=== PATIENT | male | born 2000 | race Hispanic/Latino ===

== ENCOUNTER 2018-07-31 17:15 | Emergency (ER) | payer BC ==
[~2018-07-31 17:15] MED LIST: Iopamidol 370 76% 100 ML VIAL ONE
[2018-07-31 18:33] LABS: Bilirubin Small (Negative); Blood, Urine Negative (Negative); Clarity Clear (Clear); Glucose, Urine (Dipstick) Negative (Negative); Leukocyte Negative (Negative); Nitrite Negative (Negative); Protein, Urine (Dipstick) 100 mg/dL (Neg-Trace); Specific Gravity, Urine 1.025 (1.005-1.030)
[2018-07-31 18:45] LABS: Bacteria/HPF Rare-Few HPF (None Seen); RBC/HPF None Seen HPF (0-3); Squamous Epithelial 0-3 HPF (0-3); WBC/HPF 0-3 HPF (0-3)
[2018-07-31 18:46] LABS: Crystals/HPF 1+ AMORPH URATES HPF (Negative); Other Casts/LPF 0-3 FINELY GRAN LPF (0-3 Hyaline)
[2018-07-31 18:49] LABS: ALT (SGPT) 13 U/L (8-55); AST (SGOT) 12 U/L (5-34); Albumin 4.7 g/dL (3.5-5.0); Alkaline Phosphatase 105 U/L (Less than 750); Anion Gap 14 mmol/L (10-20); BUN (Urea Nitrogen) 10 mg/dL (8.9-20.6); Bilirubin, Total 0.9 mg/dL (0.2-1.2); Calc. Creatinine Clearance 0 mL/min (70-130); Calcium 9.4 mg/dL (7.8-10.44); Carbon Dioxide 25 mmol/L (22-29); Chloride 100 mmol/L (98-107); Estimated GFR-MDRD Greater than 90; Globulin 3.6 g/dL (2.4-3.5); Glucose 124 mg/dL (70-105); Lipase 6 U/L (8-78); Potassium 3.7 mmol/L (3.5-5.1); Protein, Total 8.3 g/dL (6.0-8.3); Sodium 135 mmol/L (136-145)
[2018-07-31 18:51] LABS: Band 1 % (5-11); Hemoglobin 14.7 g/dL (14.0-18.0); Lymphocytes 5 % (28-48); MDiff Complete? YES; Mean Corpuscular HGB CONC 32.6 g/dL (32.0-36.0); Mean Corpuscular Hemoglobin 28.9 pg (25.0-35.0); Mean Corpuscular Volume 88.9 fL (78.0-98.0); Mean Platelet Volume 7.8 fL (7.4-10.4); Monocytes 2 % (0-4); Neutrophil 90 % (31-61); Platelet Count 355 thou/uL (130-400); Platelet Morphology Comment Appears Adequate; RBC Distribution Width 12.2 % (11.5-14.5); RBC Morphology Normal; Reactive Lymphocytes 2 % (0-10); Red Blood Cell (RBC) Count 5.06 mill/uL (4.00-5.20); White Blood Cell (WBC) Count 21.6 thou/uL (4.8-10.8)
[2018-07-31] MEDS ORDERED: Sodium Chloride 0.9% 100 ML ONE (19:07)
[2018-07-31] MEDS ORDERED: CEFAZOLIN 1 GM VIAL ONE (19:07)
[2018-07-31] MEDS ORDERED: Sodium Chloride 0.9% 1,000 ML ONE (19:07)
--- NOTE | 2018-07-31 20:08 | CT ---
CT of abdomen and pelvis: 07/31/2018 COMPARISON: None HISTORY: Pain, vomiting TECHNIQUE: Axial CT imaging is obtained at 5 mm intervals from lung bases through pubic symphysis wit h IV contrast. Coronal reformatted imaging obtained. FINDINGS: Detailed assessment of the abdomen pelvis is significantly limited secondary to persistent motion artifact. There is mild gaseous distention of the distal esophagus. Limited assessment of the lung bases is grossly unremarkable. No free intraperitoneal air. Limited assessment of the liver, gallbladder, spleen, pancreas, adrenal glands, and kidneys appears unremarkable. Small volume abnormal free fluid is seen within the pelvis. Limited assessment of the bowel secondary to motion and lack of oral contrast media demonstrates no e vidence for obstruction. There is inflammatory fat stranding in the right lower quadrant. The appendix is thick-walled fluid-filled and dilated, best seen on axial images 67-71. Appendix measures up to 1.5 cm in transverse dimension. No extraluminal gas. No evidence for abscess formation. Review of osseous structures demonstrates no worrisome lytic or blastic lesions. Small fat-containing inguinal hernia noted on the right. IMPRESSION: Findings consistent with acute appendicitis. Results called to Dr. Gallegos 8:05 PM 07/31/2018
[2018-07-31] MEDS ORDERED: metroNIDAZOLE 500 MG/100 ML BAG ONE (20:27)
[2018-07-31] MEDS ORDERED: Acetaminophen 500 MG TAB ONE (21:24)
== END 2018-07-31 21:35 | disposition short-term general hospital (02) ==
LOC: MADERS 17:15
DX: K35.80 Unspecified acute appendicitis (principal)
CPT/HCPCS: 74177; 80053; 81003; 81015; 83605; 83690; 85025; 96365; 96367; J0690; J3490; J7050; Q9967

== ENCOUNTER 2019-11-17 16:46 | Emergency (ER) | payer BC ==
[2019-11-17] MEDS ORDERED: Adacel (T-DAP) 0.5 ML SYRINGE ONE (17:45)
== END 2019-11-17 17:50 | disposition home or self-care (01) ==
LOC: MADERS 16:46
DX: S30.811A Abrasion of abdominal wall, initial encounter (principal); S50.812A Abrasion of left forearm, initial encounter; S50.811A Abrasion of right forearm, initial encounter; S50.312A Abrasion of left elbow, initial encounter; S50.311A Abrasion of right elbow, initial encounter; V29.40XA Motorcycle driver injured in collision with unspecified motor vehicles in traffic accident, initial encounter
CPT/HCPCS: 90471; 90715

== ENCOUNTER 2020-12-07 20:31 | Emergency (ER) | payer BC | END 2020-12-07 21:41 | disposition home or self-care (01) | LOC: MADERS 20:31 | DX: G51.0 Bell's palsy (principal); F17.290 Nicotine dependence, other tobacco product, uncomplicated | CPT/HCPCS: 99283 ==